=== PATIENT | female | born 1990 | race American Indian/Alaskan Native ===

== ENCOUNTER 2021-08-15 21:38 | Emergency (ER) | payer MEDICAID ==
[2021-08-15 22:16] VITALS: BP 118/62
--- NOTE | 2021-08-16 00:58 | Emergency Department Report ---
ED ENT HPI - General Chief complaint: Dental/Oral Stated complaint: DENTAL PAIN Time Seen by Provider: 08/16/21 00:28 Source: patient Mode of arrival: Ambulatory Limitations: No Limitations - History of Present Illness Initial comments: Patient is 31 years old female with no significant past medical history. Patient presented to the ER complaining of right upper teeth infection and swelling for the last few days. Patient denies any fever or chills. No difficulty swallowing or opening her mouth. MD complaint: tooth pain -: days(s) Location: tooth # Severity: moderate Consistency: constant Worsens with: none Context- Dental: history of dental caries - Related Data Home Medications Medication Instructions Recorded Confirmed Last Taken No Known Home Medications [No 11/18/15 11/18/15 Unknown Reported Home Medications] Allergies Allergy/AdvReac Type Severity Reaction Status Date / Time No Known Allergies Allergy Verified 11/18/15 02:58 ED Dental HPI - General Chief complaint: Dental/Oral Stated complaint: DENTAL PAIN Time Seen by Provider: 08/16/21 00:28 Source: patient Mode of arrival: Ambulatory Limitations: No Limitations - Related Data Home Medications Medication Instructions Recorded Confirmed Last Taken No Known Home Medications [No 11/18/15 11/18/15 Unknown Reported Home Medications] Allergies Allergy/AdvReac Type Severity Reaction Status Date / Time No Known Allergies Allergy Verified 11/18/15 02:58 ED Review of Systems ROS: Stated complaint: DENTAL PAIN Other details as noted in HPI Comment: All other systems reviewed and negative Constitutional: denies: chills, fever ENT: dental pain Respiratory: denies: cough, shortness of breath, SOB with exertion Cardiovascular: denies: chest pain, palpitations Gastrointestinal: denies: abdominal pain, nausea, vomiting Musculoskeletal: denies: back pain Neurological: denies: headache, weakness, numbness, paresthesias, confusion ED Past Medical Hx - Past Medical History Hx Hypertension: No Hx Congestive Heart Failure: No Hx Diabetes: No Hx Deep Vein Thrombosis: No Hx Renal Disease: No Hx Sickle Cell Disease: No Hx Seizures: No Hx Asthma: No Hx COPD: No Hx HIV: No - Social History Smoking Status: Never Smoker Substance Use Type: None - Medications Home Medications: Home Medications Medication Instructions Recorded Confirmed Last Taken Type No Known Home Medications [No 11/18/15 11/18/15 Unknown History Reported Home Medications] ED Physical Exam - General Limitations: No Limitations General appearance: alert, in no apparent distress - ENT ENT exam: Present: other (Right jaw swelling) - Neck Neck exam: Present: normal inspection. Absent: tenderness, meningismus - Respiratory Respiratory exam: Present: normal lung sounds bilaterally - Cardiovascular Cardiovascular Exam: Present: regular rate, normal rhythm, normal heart sounds - GI/Abdominal GI/Abdominal exam: Present: soft. Absent: distended, tenderness, guarding, rebound, rigid - Extremities Exam Extremities exam: Present: normal inspection, full ROM, normal capillary refill - Neurological Exam Neurological exam: Present: alert, oriented X3, CN II-XII intact - Psychiatric Psychiatric exam: Present: normal mood - Skin Skin exam: Present: warm, normal color ED Course Vital Signs 08/15/21 22:15 Temperature 98.1 F Pulse Rate 83 Respiratory 18 Rate Blood Pressure 118/62 O2 Sat by Pulse 99 Oximetry ED Medical Decision Making - Medical Decision Making Exam showed dental caries with possible dental abscess. Patient given prescription for amoxicillin and Naprosyn and advised to follow-up with her dentist in the next 2 to 3 days and to return to the ER if she develop any new symptoms. Critical care attestation.: If time is entered above; I have spent that time in minutes in the direct care of this critically ill patient, excluding procedure time. ED Disposition Clinical Impression: Dental abscess Disposition: 01 HOME / SELF CARE / HOMELESS Is pt being admited?: No Condition: Stable Instructions: Dental Abscess, [id number] Referrals: PRIMARY CARE, [Primary Care Provider] - 3-5 Days
[2021-08-16] MEDS ORDERED: AMOXICILLIN 500 MG CAP PO ONE (01:22)
== END 2021-08-16 01:39 | disposition home or self-care (01) ==
LOC: ED 21:38
DX: K04.7 Periapical abscess without sinus (principal)
CPT/HCPCS: 99282